=== PATIENT | female | born 1965 | race Caucasian/White ===

== ENCOUNTER → 2024-06-12 07:08 | Outpatient (REF) | payer BC, SELFPAY | LOC: HWWDC 07:08 | PROVIDERS: ATTENDING PHYSICIAN Internal Medicine Geriatric Medicine | DX: E04.1 Nontoxic single thyroid nodule (principal); Z12.31 Encounter for screening mammogram for malignant neoplasm of breast | CPT/HCPCS: 76536; 77063; 77067 ==